=== PATIENT | male | born 1950 | race Caucasian/White ===

== ENCOUNTER → 2020-05-09 15:45 | Outpatient (CLI) | payer MEDICARE, SELFPAY ==
--- NOTE | ~2020-05-09 | MR_ITS ---
EXAMINATION: MR shoulder RT wo con DATE: 05/09/2020 16:18 INDICATION: Right rotator cuff tear. TECHNIQUE: Magnetic resonance imaging (MRI) of the right shoulder was performed without intravenous c ontrast. Sequences included axial PD-weighted FS FSE, coronal oblique PD-weighted FS FSE and T2-weigh ron FS FSE, and sagittal oblique T2-weighted FS FSE and T1-weighted FSE. COMPARISON: Right shoulder radiographs 05/02/2020 FINDINGS: Coracoacromial arch: The acromion undersurface is curved in morphology (type II). There is severe acromioclavicular joint osteoarthritis. There is moderate subacromial/subdeltoid bursitis. Rotator cuff: There is severe supraspinatus and infraspinatus tendinopathy. There is a full-thickness tear of anter ior supraspinatus tendon measuring 7 mm anterior to posterior by 10 mm proximal to distal. Teres dana r tendon is normal. There is an articular sided partial tear of subscapularis tendon. There is no asy mmetric fatty atrophy of the rotator cuff muscle bellies. Biceps tendon and glenoid labrum: Biceps tendon is in bicipital groove. There is a partial tear of biceps tendon. There is a tear of th e glenoid labrum from 10:00 to 2:00 (SLAP tear). Fluid: There is a moderate-sized glenohumeral joint effusion. Bones/cartilage: There is shallow partial-thickness cartilage loss of glenoid and humeral head. IMPRESSION: 1. Severe rotator cuff tendinopathy with full-thickness tear of anterior supraspinatus tendon and par tial thickness tear of subscapularis tendon. 2. Partial tear of intra-articular biceps tendon. 3. Mild glenohumeral joint chondrosis. SLAP tear. 4. Moderate subacromial/subdeltoid bursitis and moderate-sized glenohumeral joint effusion. 5. Severe acromioclavicular joint osteoarthritis. Reviewed, dictated and finalized at location [facility]. [employer] IMPRESSION: 1. Severe rotator cuff tendinopathy with full-thickness tear of anterior supras pinatus tendon and partial thickness tear of subscapularis tendon. 2. Partial tear of intra-articular biceps tendon. 3. Mild glenohumeral joint chondrosis. SLAP tear. 4. Moderate subacromial/subdeltoid bursitis and moderate-sized glenohumeral parish nt effusion. 5. Severe acromioclavicular joint osteoarthritis.
== END ==
PROVIDERS: PCP Family Medicine; Visit Provider Orthopaedic Surgery
DX: M75.121 Complete rotator cuff tear or rupture of right shoulder, not specified as traumatic (principal); M19.011 Primary osteoarthritis, right shoulder; S43.431A Superior glenoid labrum lesion of right shoulder, initial encounter; X58.XXXA Exposure to other specified factors, initial encounter; M75.51 Bursitis of right shoulder
CPT/HCPCS: 73221

== ENCOUNTER 2020-06-15 00:43 | Outpatient (CLI) | payer MEDICARE, SELFPAY ==
[2020-06-15 18:47] LABS: SARS-CoV-2 RNA PCR Negative
== END 2020-06-15 00:44 | disposition home or self-care (01) ==
LOC: ANHCOVIDDT 00:43
PROVIDERS: PCP Family Medicine; Visit Provider Orthopaedic Surgery
DX: Z01.812 Encounter for preprocedural laboratory examination (principal); Z20.822 Contact with and (suspected) exposure to COVID-19
CPT/HCPCS: C9803; U0003; U0005

== ENCOUNTER 2020-06-18 00:54 | Day surgery (SDC) | payer MEDICARE, SELFPAY ==
[2020-06-10 09:43] VITALS: BMI 25.8
--- NOTE | 2020-06-17 11:42 | WPDANESEPPF ---
Anes - Initial Pre Proc Eval Procedure: Operation Date: 06/18/20 10:30 Proposed Procedures p Arthroscopic Right Rotator Cuff Repair, Biceps Tenodesis, Subacromial Decompression - Zion Handy MD Date/Time: 06/17/20 11:42 Surgeon: Zion Handy MD Pre Op Diagnosis: Right Rotator Cuff Tear, Biceps Tendon Tear Patient Data Age: 69 Gender: M Height: 1.78 m Weight: 81.65 kg Allergies Allergy/AdvReac Type Severity Reaction Status Date / Time morphine Allergy Unknown Unknown Verified 06/18/20 08:24 Home Medications Medication Instructions Recorded Confirmed Type atorvastatin 40 mg tablet 40 mg PO DAILY 04/16/20 06/18/20 History metoprolol succinate 25 mg 12.5 mg PO QAM 04/16/20 06/18/20 History tablet,extended release 24 hr cholecalciferol (vitamin D3) 125 mcg PO DAILY 06/10/20 06/18/20 History glucos sul [id number] 1 cap PO DAILY 06/10/20 06/18/20 History [Glucosamine Chondroitin] ibuprofen 200 mg PO Q6H PRN 06/10/20 06/18/20 History aspirin 81 mg chewable tablet 81 mg PO DAILY 06/12/20 06/18/20 History Patient hx anesthesia problems: none Family hx anesthesia problems: none PMFSH Past Medical History Medical History (Updated 06/17/20 @ 11:44 by Jordan Li MD) CAD (coronary artery disease) Elbow fracture (~1989) History of heart attack (~08/2012) Hypercholesterolemia Surgical History Surgical History (Updated 06/17/20 @ 11:44 by Jordan Li MD) History of appendectomy History of back surgery (~1986) History of coronary artery stent placement x 2011 History of tonsillectomy Social History Social History Smoking status: Never smoker Alcohol intake: never Living arrangements: with family Spiritual care concerns: No Anes - Eval Final PreProcedure Day of Procedure 06/17/20 11:42 Patient weight: overweight Heart: regular rate and rhythm Lungs: clear to auscultation and normal air movement Airway: Mallampati scale class II Neurological: alert and oriented Last oral intake: >/= 8 hours ASA classification: III Emergent: no Anesthetic plan: proceed Anesthesia type and monitoring: general ETT Informed Consent: The patient's anesthetic plan and its attendant risks and benefits were discussed with the patient/family/POA. Questions were solicited and answers provided to the satisfaction of the patient/family/POA.
[2020-06-18] VITALS (8 sets, daily range): BP systolic 119–155; BP diastolic 70–95; PULSE 43–57; RESP 10–19; TEMP 36–36.1; O2SAT 93–99
--- NOTE | 2020-06-18 08:20 | ECG_ITS ---
Measurements Intervals [place] Rate: 53 P: 26 [place]: 197 QRS: 36 QRSD: 93 T: -29 QT: 431 QTc: 406 Interpretive Statements SINUS BRADYCARDIA INFERIOR INFARCT, AGE INDETERMINATE ABNORMAL ECG Electronically Signed On 06-18-2020 8:52:06 CABLE LAYER by Alvaro Bowen D.O.
[2020-06-18] MEDS: ACETAMINOPHEN 500 MG TABLET 1000 MG PO (08:38)
[2020-06-18] MEDS: LACTATED RINGERS 1,000 ML 30 ML IV CONT ×2 (08:56→13:04)
[2020-06-18] MEDS: KETOROLAC 15 MG/ML VIAL (*BKC) IV PUSH (08:56)
--- NOTE | 2020-06-18 09:54 | WPDANESPNB ---
Anes - Peripheral Nerve Block Date/Time: 06/18/20 09:54 I have discussed with the patient/family/POA the placement of a peripheral nerve block for post-operative pain management, including associated risks, benefits, complications, and side effects. Alternative methods of post-operative analgesia were detailed. Questions were solicited and answers provided to the satisfaction of the patient/family/POA. Time-Out: A pre-procedural Time-Out was completed immediately before starting the procedure and confirmed: Patient Identification, Site, Procedure, Patient Position and the Availability of Requisite Equipment. Clinical Indications: Acute post-operative pain management requested by the operative surgeon. Nerve Block Insertion Note Anes-nerve block: supraclavicular right Patient position: supine Skin prep: chlorhexidine Needle: 22 gauge, stimulating, insulated echogenic needle. Needle length: 80 mm Technique: ultrasound (in plane) Injectate: bupivacaine 0.5% with epi 5 mcg/ml (20cc) Observations: tolerated well Complications: none Procedure start time:: 1045 Procedure end time:: 1050
--- NOTE | 2020-06-18 10:31 | WPDHPUPDATE1 ---
History and Physical Update Update Date/Time: 06/18/20 10:31 History and Physical has been reviewed, including an updated exam of the patient. There are NO changes in the patient's condition. Risks, benefits, and alternatives have been discussed and questions answered. Patient agrees to proceed with procedure.
[2020-06-18] MEDS: ceFAZolin 2 GM/D5W 50 ML 2 GM/50 ML BAG IVPB (10:53)
--- NOTE | 2020-06-18 15:23 | P.OP_ITS ---
Procedure Note - Detailed Date of procedure: 06/18/20 Pre-op diagnosis: Right Rotator Cuff Tear, Biceps Tendon Tear Post-op diagnosis: same Procedure performed: 1. Arthroscopic rotator cuff repair. 2. Arthroscopic subacromial decompression. 3. Arthroscopic biceps tenodesis. Description of procedure: Large full-thickness rotator cuff tear. Mild retraction and delamination. Significant tearing and tendinosis of the intra- articular biceps tendon. Two tunnels were created at the footprint. Simple suture pattern was used. The delaminated tendon was incorporated in the more anterior supraspinatus portion. Biceps tenodesis was incorporated, as the tear was anterior. Two sutures from the anterior tunnel were passed through the biceps tendon and the cuff; one with a locking loop. The acromion had a significant downsloping spur. This was treated with acromioplasty. Glenohumeral joint was in good condition without significant cartilage wear. There was mild degeneration of the posterior inferior labrum. There was moderate capsulitis and inflammatory effusion. Anesthesia: [facility] Surgeon: Zion Handy MD Instructional Support Technician: Letty Schumacher PA-C Estimated blood loss (mL): 20 Complications: None Condition: stable Disposition: PACU Findings: Physician physician office assistant, Letty Schumacher PA-C, required for surgery; including patient positioning, draping, arthroscopic camera operation, maintaining instrument position, suture retrieval, wound closure, and dressing and sling placement. Operative detail: Preoperative antibiotics were given. An interscalene block was administered in the preoperative area. The patient was bought brought to the operating room. A general anesthetic was administered. The patient was carefully positioned in the beach chair position. The head and neck were carefully positioned. The non operative extremity was also carefully positioned. The shoulder was prepped and draped in the usual sterile fashion. Examination was performed. Standard po sterior and anterior arthroscopic portals were established. Inflow achieved with the arthroscopic pump using saline and epinephrine. The glenohumeral joint was carefully inspected. Mild fraying posteriorly did not require any specific treatment. Biceps had significant fraying was very flattened and degenerative. It was released from the superior labrum. Attention was turned to the subacromi al space. A complete bursectomy was performed. The rotator cuff and footprint were lightly debrided. A modest acromioplasty was performed. The tear configuration was carefully assessed. At this point, 2 tunnels were created at the rotator cuff. One anterior and 1 posterior. The ArthroTunneler technique was utilized. Three sutures were passed through each tunnel. All sutures were then passed through the cuff tissue. Two of the anterior sutures were also incorporated into the biceps for tenodesis. The sutures were tied arthroscopically. The arthroscopic instruments were removed. The wounds were closed with 3-0 Monocryl subcuticular suture and steri strips. There were no complications. A sling was applied and the patient brought to the recovery room.
== END 2020-06-18 15:10 | disposition home or self-care (01) ==
PROVIDERS: PCP Family Medicine; Visit Provider Orthopaedic Surgery
PROC: (CPT 29805; principal; 2020-06-18 10:30)
DX: S46.011A Strain of muscle(s) and tendon(s) of the rotator cuff of right shoulder, initial encounter (principal); S46.211A Strain of muscle, fascia and tendon of other parts of biceps, right arm, initial encounter; X50.0XXA Overexertion from strenuous movement or load, initial encounter; G89.18 Other acute postprocedural pain; I25.10 Atherosclerotic heart disease of native coronary artery without angina pectoris; E78.00 Pure hypercholesterolemia, unspecified; I25.2 Old myocardial infarction; Z95.5 Presence of coronary angioplasty implant and graft; Z79.82 Long term (current) use of aspirin
CPT/HCPCS: 29827; 29828; 29826; 64415; 93005; A9270; J0690; J1100; J1885; J2250; J2405; J2704; J2710; J3010; J7120

== ENCOUNTER 2020-11-18 09:48 | Outpatient (CLI) | payer MEDICARE, SELFPAY ==
[2020-11-18 11:14] LABS: Basophils Percent Auto 0.6 % (0.2-1.2); Eosinophils Absolute Auto 0.2 K/mm3 (0-0.3); Eosinophils Percent Auto 2.6 % (0-4.4); Hematocrit 47.6 % (42.0-52.0); Hemoglobin 15.6 g/dL (14.0-18.0); Immature Granulocyte Absolute 0.02 K/mm3 (0.00-0.031); Immature Granulocyte Percent A 0.3 % (0-0.5); Lymphocytes Absolute Auto 1.64 K/mm3 (0.9-3.2); Lymphocytes Percent Auto 23.3 % (18.3-44.2); Mean Corpuscular HGB Conc 32.8 g/dl (32-36); Mean Corpuscular Hemoglobin 30.1 pg (26-34); Mean Corpuscular Volume 91.7 fl (80-100); Mean Platelet Volume 11.1 fl (7.4-10.4); Monocytes Absolute Auto 0.8 K/mm3 (0.1-0.6); Monocytes Percent Auto 10.7 % (2.6-8.5); Neutrophils Absolute Auto 4.4 K/mm3 (1.3-6.7); Neutrophils Percent Auto 62.5 % (45.5-73.1); Platelet Count Result 224 k/mm3 (150-375); Red Blood Count 5.19 M/mm3 (4.6-6.20); Red Cell Distribution Width 13.9 % (11.5-14.5)
[2020-11-18 11:24] LABS: Potassium 4.2 mmol/L (3.4-5.0)
[2020-11-18 11:26] LABS: INR 1.1; Prothrombin Time 14.3 Seconds (11.1-14.7)
[2020-11-18 11:27] LABS: Partial Thromboplastin Time 28.3 SECONDS (22.3-36.8)
[2020-11-18 11:29] LABS: Alanine Aminotransferase 14 U/L (4-50); Albumin Level 4.4 g/dL (3.5-5.1); Alkaline Phosphatase 62 U/L (38-126); Anion Gap 7 mmol/L (8-16); Aspartate Amino Transferase 25 U/L (17-59); Bilirubin,Total 0.6 mg/dL (0.2-1.3); Blood Urea Nitrogen 16 mg/dL (9-20); Calcium 9.8 mg/dL (8.4-10.2); Carbon Dioxide 28 mmol/L (22-30); Chloride 105 mmol/L (98-107); Estimated Glomerular Filt Rate > 60; Sodium 140 mmol/L (137-145)
[2020-11-18 13:01] LABS: Glucose 97 mg/dL (75-110)
== END 2020-11-18 09:49 | disposition home or self-care (01) ==
PROVIDERS: PCP Family Medicine; Visit Provider Urology
DX: C61 Malignant neoplasm of prostate (principal); Z01.818 Encounter for other preprocedural examination
CPT/HCPCS: 36415; 80053; 85025; 85610; 85730; 86850; 86900; 86901; 87086

== ENCOUNTER → 2020-11-23 00:05 | Outpatient (CLI) | payer MEDICARE, SELFPAY ==
[2020-11-23 16:57] LABS: SARS-CoV-2 RNA PCR Negative
== END ==
PROVIDERS: PCP Family Medicine; Visit Provider Urology
DX: Z01.812 Encounter for preprocedural laboratory examination (principal); Z20.822 Contact with and (suspected) exposure to COVID-19
CPT/HCPCS: C9803; U0003; U0005

== ENCOUNTER 2020-11-26 01:59 | Day surgery (SDC) | payer MEDICARE, SELFPAY ==
[2020-11-18 10:18] VITALS: BP 148/76; PULSE 46; RESP 20; TEMP 36.9; O2SAT 99; BMI 28.0
[2020-11-26] VITALS (16 sets, daily range): BP systolic 106–157; BP diastolic 61–94; PULSE 49–84; RESP 12–20; TEMP 35.8–37.1; O2SAT 94–100; BMI 27.1
--- NOTE | 2020-11-26 06:28 | P.PNAN_ITS ---
Anes - Initial Pre Proc Eval Procedure: Operation Date: 11/26/20 07:30 Proposed Procedures p Robotic Assisted Nerve Sparing Prostatectomy With Possible Bilateral Lymph Node Dissection - Enrique Stiles MD Date/Time: 11/26/20 06:28 Surgeon: Enrique Stiles MD Pre Op Diagnosis: prostate CA Patient Data Age: 69 Gender: M Height: 1.75 m Weight: 86.2 kg Last Vital Signs Temp 36.9 C 11/18/20 10:18 Pulse 46 L 11/18/20 10:18 Resp 20 11/18/20 10:18 BP 148/76 H 11/18/20 10:18 Pulse Ox 99 11/18/20 10:18 Allergies Allergy/AdvReac Type Severity Reaction Status Date / Time morphine Allergy Unknown UNABLE TO Verified 11/26/20 06:23 URINATE Home Medications Medication Instructions Recorded Confirmed Type atorvastatin 40 mg tablet 20 mg PO HS 04/16/20 11/18/20 History metoprolol succinate 25 mg 12.5 mg PO QAM 04/16/20 11/18/20 History tablet,extended release 24 hr Glucosamine Chondroitin 1 cap PO QAM 06/10/20 11/18/20 History cholecalciferol (vitamin D3) 125 mcg PO QAM 06/10/20 11/18/20 History aspirin 81 mg chewable tablet 81 mg PO QAM 06/12/20 11/18/20 History calcium carbonate-vitamin D3 1 tablet PO QAM 11/18/20 11/18/20 History [Calcium + D] Patient hx anesthesia problems: none Family hx anesthesia problems: none PMFSH Past Medical History Medical History CAD (coronary artery disease) Elbow fracture (~1989) History of heart attack (~08/2012) Hypercholesterolemia Surgical History Surgical History History of appendectomy History of back surgery (~1986) History of coronary artery stent placement x 2011 History of repair of right rotator cuff (~06/18/20) Biceps Tenodesis and Subacromial Decompression History of tonsillectomy Social History Social History Smoking status: Never smoker Second hand tobacco smoke exposure: No Alcohol intake: never Substance use: never Substance use type: does not use Living arrangements: with family Spiritual care concerns: No Anes - Eval Final PreProcedure Day of Procedure 11/26/20 06:28 Patient weight: overweight Heart: regular rate and rhythm Lungs: clear to auscultation Airway: Mallampati scale class II Neurological: alert and oriented Last oral intake: >/= 8 hours ASA classification: III Emergent: no Anesthetic plan: proceed Anesthesia type and monitoring: general ETT and standard monitoring Informed Consent: The patient's anesthetic plan and its attendant risks and bene fits were discussed with the patient/family/POA. Questions were solicited and answers provided to the satisfaction of the patient/family/POA.
[2020-11-26] MEDS: LACTATED RINGERS 1,000 ML 30 ML IV CONT ×2 (06:45→12:11)
--- NOTE | 2020-11-26 06:53 | WPDHPUPDATE1 ---
History and Physical Update Update Date/Time: 11/26/20 06:53 History and Physical has been reviewed, including an updated exam of the patient. There are NO changes in the patient's condition. Risks, benefits, and alternatives have been discussed and questions answered. Patient agrees to proceed with procedure. Proceed with robotic assist nerve sparing prostatectomy with possible plnd.
[2020-11-26] MEDS: ceFAZolin 2 GM/D5W 50 ML 2 GM/50 ML BAG IVPB (07:28)
[2020-11-26] MEDS: BUPIVACAINE HCL 0.5% PF 30 ML VIAL INFILTRATE (10:22)
[2020-11-26] MEDS: ceFAZolin SODIUM 1 GM VIAL IV PUSH (11:24)
--- NOTE | 2020-11-26 12:05 | W.PM.PROC2 ---
Procedure Note - Detailed Date of Procedure 11/26/20 Pre-op Diagnosis prostate CA Post-op Diagnosis same Procedure Performed Robotic assisted nerve-sparing prostatectomy with left pelvic lymph node dissection Surgeon Enrique Stiles MD Anesthesia general Description of Procedure patient was taken the operative suite correctly identified. Once anesthesia was obtained was placed in lying dorsal lithotomy position and prepped and draped usual sterile fashion. Supraumbilical incision was then made carried down to the rectus fascia. Stay Veress needle was inserted the abdomen was insufflated to 15 mmHg pressure. An 18 Persian Hull had been placed with 20 cc in the balloon. We then placed our working ports then proper locations. Patient was placed in steep Trendelenburg and the robot was docked. With placement of the camera was noted that the visualization was extremely poor. We had about 35-45 minutes of time trying to resolve the issue and finally were able to reset the de Marcellus to rectify the problem. We then started by taking down adhesions from the left colon. Posterior approach was then performed. Seminal vesicles were dissected out in their entirety. The vas were transected. Plane between the prostate and rectum was developed. Bladder was then taken down in a standard fashion. Space of Retzius was developed. Puboprostatic were taken down. Dorsal venous complex was isolated and ligated using 0 Vicryl. This was secured to the pubic bone. Bladder neck was then taken down. Patient had a fairly large median lobe it almost appeared bilobed. We were able to Excise it with the specimen in its entirety. Posterior bladder neck was then transected. The prior dissected seminal vesicles and vas were isolated. Pedicles were clipped. Bilateral nerve sparing was then performed. Dorsal venous complex was transected. The urethra was also transected. He had a nice urethral stump. Left pelvic lymph node dissection was then performed with the boundaries being the external iliac vein, obturator nerve, Toney's ligament, and bifurcation of the vessels. Clips were placed approximately. Specimens were placed in Endo-Catch bag. We then did a Luis stitch for the posterior shelf. Bladder was anastomosed to the urethral stump using V lock suture in a running fashion. There was a good approximation mucosa to mucosa. Sixteen Persian Hull with 10 cc were placed in the balloon. All lap count needle count sponge counts were correct. The specimen was then brought out through the midline incision after we undocked the robot. The lock suture was then placed to reapproximate the rectus fascia. A AMBER drain had been placed in the 3rd port site. Port sites were closed using a subcuticular stitch. We anesthetized this port sites using lidocaine without epi. All lap count needle count sponge counts were correct. Patient is taken recovery stable condition. Estimated Blood Loss 100 Drains Yes Packing No Pathology yes Complications No immediate complications Condition stable Disposition PACU
[2020-11-26] MEDS: fentaNYL CITRATE INJ (*CRX) 100 MCG/2 ML VIAL 25 MCG IV PUSH ×2 (13:37→13:41)
--- NOTE | 2020-11-26 13:44 | SUR.PHASEI ---
1232 - dr. balderrama informed on low urine output. ordered to irrigate trejo. pt tolerated well. no clots noted. trejo drained with light pink urine.
--- NOTE | 2020-11-26 14:22 | ADMGEN ---
This patient, Dontae Perez, was admitted to Medical Room 259-01. Patient/family oriented to hospital policies and general routines including ID bracelet, bed and alarms, visiting hours, pain management, procedures, bathroom and other care routines, personal items, smoking policy, room service/diet, and visiting hours. Information on how to activate the Rapid Response Team has been discussed. Patient/Family are encouraged to report perceived risks to care and to ask questions if they do not understand what they are told or what they should do.
[2020-11-26] MEDS: LACTATED RINGERS 1,000 ML 125 ML IV CONT ×2 (14:28→22:32)
[2020-11-26] MEDS: KETOROLAC 15 MG/ML VIAL (*BKC) IV PUSH (14:29)
[2020-11-26] MEDS: HYDROcodone/acetaminophen (*CRX) 5-325 MG TABLET 1 TAB PO (17:55)
[2020-11-26] MEDS: ONDANSETRON INJ 4 MG/2 ML VIAL IV PUSH (19:41)
[2020-11-26] MEDS: ATORVASTATIN 20 MG TABLET PO (20:51)
[2020-11-27] MEDS: HYDROcodone/acetaminophen (*CRX) 5-325 MG TABLET 1 TAB PO ×2 (03:13→15:12)
[2020-11-27 03:53] VITALS: BP 114/70; PULSE 58; RESP 20; TEMP 36.7; O2SAT 98
[2020-11-27] MEDS: HYOSCYAMINE SULFATE 0.125 MG TABLET SUBLINGUAL (05:22)
[2020-11-27 05:47] LABS: Hematocrit 37.4 % (42.0-52.0); Hemoglobin 12.4 g/dL (14.0-18.0)
[2020-11-27 05:52] LABS: Anion Gap 4 mmol/L (8-16); Blood Urea Nitrogen 12 mg/dL (9-20); Calcium 8.4 mg/dL (8.4-10.2); Carbon Dioxide 26 mmol/L (22-30); Chloride 103 mmol/L (98-107); Estimated CRCL calculation 77 ml/min; Estimated Glomerular Filt Rate > 60; Glucose 110 mg/dL (75-110); Potassium 3.9 mmol/L (3.4-5.0); Sodium 133 mmol/L (137-145)
[2020-11-27] MEDS: LACTATED RINGERS 1,000 ML 125 ML IV CONT (06:33)
--- NOTE | 2020-11-27 07:52 | WPDUROPN2 ---
Progress Note: A&P Assessment and Plan (1) Adenocarcinoma of prostate: Code(s): C61 - Malignant neoplasm of prostate Status: Acute Additional Plan Doing well on postoperative day 1. Increase ambulation. Will monitor AMBER output this morning. Re-evaluate this afternoon. If doing well may be discharged home with Hull catheter. Subjective Subjective Date/Time Seen: 11/27/20 07:52 Post Op day: 1 (Robotic assisted nerve-sparing prostatectomy with left pelvic lymph node dissection) Principal diagnosis: adenocarcinoma of the prostate Interval history: Dontae is doing well this morning. He had quite a bit of nausea overnight. Urine is clear at this point time. Review of Systems Review of Systems: All systems reviewed & are unremarkable except as noted in HPI and below Exam Const: General: cooperative and comfortable Resp: Effort & Inspection: normal respiratory effort Cardio: Rate: regular rate Rhythm: regular rhythm GI: Inspection: normal to inspection GI Palp: Yes Soft to palpation Urinary Catheter: Urinary Catheter: patent and draining and urine clear Objective Data Vital Signs Vital Signs: Vital Signs - 24 hr 11/26/20 12:11 11/26/20 12:25 11/26/20 12:40 Temperature 36.6 C Pulse Rate 76 63 61 Respiratory Rate 16 18 18 Blood Pressure 150/90 H 157/94 H 153/82 H Pulse Oximetry 100 100 95 11/26/20 12:55 11/26/20 13:10 11/26/20 13:25 Temperature Pulse Rate 68 60 66 Respiratory Rate 12 14 18 Blood Pressure 149/79 H 151/85 H 145/92 H Pulse Oximetry 96 97 95 11/26/20 13:40 11/26/20 13:55 11/26/20 14:05 Temperature Pulse Rate 68 69 73 Respiratory Rate 14 18 16 Blood Pressure 147/91 H 131/82 131/82 Pulse Oximetry 94 95 94 11/26/20 14:08 11/26/20 14:23 11/26/20 14:53 Temperature 36.1 C L 35.8 C L 36.1 C L Pulse Rate 75 73 71 Respiratory Rate 16 16 16 Blood Pressure 140/79 148/84 H 140/84 Pulse Oximetry 96 97 97 11/26/20 15:53 11/26/20 19:53 11/26/20 23:53 Temperature 36.8 C 36.8 C 37.1 C Pulse Rate 70 84 59 L Respiratory Rate 16 18 20 Blood Pressure 132/74 133/79 106/61 Pulse Oximetry 94 96 98 11/27/20 03:53 Temperature 36.7 C Pulse Rate 58 L Respiratory Rate 20 Blood Pressure 114/70 Pulse Oximetry 98 Intake/Output Intake/Output: Intake & Output 11/24/20 11/25/20 11/26/20 11/27/20 23:59 23:59 23:59 23:59 Intake Total 2530 1000 Output Total 1200 1125 Balance 1330 -125 Meds/Results Medications: Active Medications Generic Name Dose Route Start Last Admin Trade Name Freq PRN Reason Stop Dose Admin Acetaminophen 650 mg 11/26/20 17:40 Acetaminophen 325 Mg Tablet PO Q4H PRN Mild Pain (1-3) or Fever Hydrocodone Bitart/Acetaminophen 1 tab 11/26/20 17:41 11/27/20 03:13 Hydrocodone/Acetaminophen (*Crx) 5-325 Mg Tablet PO 1 tab Q4H PRN Administration Pain Rated 4-6 Atorvastatin Calcium 20 mg 11/26/20 21:00 11/26/20 20:51 Atorvastatin 20 Mg Tablet PO 20 mg HS FAUSTO Administration Hyoscyamine 0.125 mg 11/26/20 14:08 11/27/20 05:22 Hyoscyamine Sulfate 0.125 Mg Tablet SUBLINGUAL 0.125 mg Q4H PRN Administration Bladder Spasm Lactated Ringer's 1,000 mls @ 125 mls/hr 11/26/20 14:08 11/27/20 06:33 Lr - Lactated Ringers Iv IV CONT 125 mls/hr .Q8H FAUSTO Administration Ketorolac Tromethamine 15 mg 11/26/20 14:08 11/26/20 14:29 Ketorolac 15 Mg/Ml Vial (*Bkc) IV PUSH 11/27/20 14:09 15 mg Q6H PRN Administration Pain Rated 4-6 Levofloxacin 500 mg 11/27/20 09:00 Levofloxacin 500 Mg Tablet PO DAILY FAUSTO Metoprolol Succinate 12.5 mg 11/27/20 09:00 Metoprolol Succinate Ext Rel 12.5 Mg Tabcr PO QAM FAUSTO Naloxone HCl 0.1 mg 11/26/20 14:08 Naloxone Hcl 0.4 Mg/Ml Vial IV PUSH Q2M PRN Opiate Reversal Ondansetron HCl 4 mg 11/26/20 19:11 11/26/20 19:41 Ondansetron Inj 4 Mg/2 Ml Vial IV PUSH 4 mg Q4H PRN Administration Nausea An
[2020-11-27 08:14] VITALS: PULSE 64
[2020-11-27] MEDS: levoFLOXacin 500 MG TABLET PO (08:14)
[2020-11-27] MEDS: METOPROLOL SUCCINATE EXT REL 12.5 MG TABCR PO (08:14)
[2020-11-27] MEDS: ACETAMINOPHEN 325 MG TABLET 650 MG PO (08:46)
[2020-11-27 11:53] VITALS: BP 128/69; PULSE 60; RESP 20; TEMP 36.7; O2SAT 96
--- NOTE | 2020-11-27 16:50 | PC.NURSE ---
Antibiotic script not transmitted electronically over computer to patients pharmacy. Spoke with pharmacist who stated she did not receive prescription, this RN called script in over the phone.
== END 2020-11-27 15:20 | disposition home or self-care (01) ==
LOC: ANHSURGERY 06:03 → ANH2MED 14:13
PROVIDERS: PCP Family Medicine; Visit Provider Urology
PROC: 0VT04ZZ Resection of Prostate, Percutaneous Endoscopic Approach (ICD-10-PCS; CPT 55867; principal; 2020-11-26 07:30)
DX: C61 Malignant neoplasm of prostate (principal); I70.90 Unspecified atherosclerosis; I25.10 Atherosclerotic heart disease of native coronary artery without angina pectoris; I25.2 Old myocardial infarction; E78.00 Pure hypercholesterolemia, unspecified; Z79.82 Long term (current) use of aspirin; Z95.5 Presence of coronary angioplasty implant and graft
CPT/HCPCS: 55866; 38571; S2900; 36415; 80048; 85014; 85018; 88304; 88305; 88307; 88309; A9270; J0330; J0690; J1100; J1170; J1885; J2250; J2370; J2405; J2704; J2710; J2765; J3010; J7030; J7120

== ENCOUNTER 2020-12-04 11:15 | Outpatient (CLI) | payer MEDICARE, SELFPAY ==
--- NOTE | ~2020-12-04 | XR_ITS ---
XR cystogram DATE: 12/04/2020 12:02 INDICATION: Prostate cancer surgery TECHNIQUE: [employer] KUB. Fluoroscopy, AP and bilateral oblique views during filling of the urinary bladd er with radiopaque contrast material through the existing Hull catheter with contrast material, and postevacuation AP view COMPARISON: None FINDINGS: There is a transitional lumbosacral vertebra with sacralization on the left and lumbarizati on on the right. There is no evidence of abnormal filling defect of the urinary bladder, vesicoureteral reflux or extr avasation of contrast material from the bladder lumen. IMPRESSION: No significant abnormality Reviewed, dictated and finalized at [facility]. Reviewed, dictated and finalized at location [facility]. IMPRESSION: No significant abnormality
== END 2020-12-04 11:16 | disposition home or self-care (01) ==
LOC: ANHIMG 11:18
PROVIDERS: PCP Family Medicine; Visit Provider Urology
DX: C61 Malignant neoplasm of prostate (principal)
CPT/HCPCS: 51600; 74430; Q9967

== ENCOUNTER 2023-05-19 10:11 | Outpatient (CLI) | payer MEDICARE, SELFPAY ==
--- NOTE | 2023-05-19 11:00 | NEURO_ITS ---
Impression: # Complains of numbness of hands. # Bilateral Carpal Tunnel Syndrome, left more than right. # Needle/EMG exam mildly neurogenic. Nerve Conduction Studies Anti Sensory Summary Table Stim Site NR Peak (ms) P-T Amp (?V) Site1 Site2 Delta-P (ms) Dist (cm) Kennedy (m/s) Left Median Anti Sensory (2-3nd Digit) Wrist 4.6 23.5 Wrist 2-3nd Digit 4.6 14.0 30 Wrist 4.8 25.6 Wrist 2-3nd Digit 4.6 14.0 30 Right Median Anti Sensory (2-3nd Digit) Wrist 3.9 23.0 Wrist 2-3nd Digit 3.9 14.0 36 Wrist 3.6 8.4 Wrist 2-3nd Digit 3.9 14.0 36 Left Radial Anti Sensory (Base 1st Digit) Wrist 2.6 23.2 Wrist Base 1st Digit 2.6 0.0 Right Radial Anti Sensory (Base 1st Digit) Wrist 2.5 18.4 Wrist Base 1st Digit 2.5 0.0 Left Ulnar Anti Sensory (5th Digit) Wrist 2.7 17.5 Wrist 5th Digit 2.7 14.0 52 Right Ulnar Anti Sensory (5th Digit) Wrist 2.7 24.2 Wrist 5th Digit 2.7 14.0 52 Motor Summary Table Stim Site NR Onset (ms) O-P Amp (mV) Site1 Site2 Delta-0 (ms) Dist (cm) Kennedy (m/s) Left Median Motor (Abd Poll Brev) Wrist 4.7 2.3 Elbow Wrist 5.1 31.0 61 Elbow 9.8 3.4 Right Median Motor (Abd Poll Brev) Wrist 3.6 3.5 Elbow Wrist 5.4 30.0 56 Elbow 9.0 3.3 Left Ulnar Motor (Abd Dig Minimi) Wrist 2.6 6.2 A Elbow Wrist 5.5 32.0 58 A Elbow 8.1 5.7 Right Ulnar Motor (Abd Dig Minimi) Wrist 2.5 6.7 A Elbow Wrist 5.5 32.0 58 A Elbow 8.0 5.7 F Wave Studies NR F-Lat (ms) L-R F-Lat (ms) Left Median (Mrkrs) (Abd Poll Brev) 30.79 0.50 Right Median (Mrkrs) (Abd Poll Brev) 30.29 0.50 Left Ulnar (Mrkrs) (Abd Dig Min) 29.79 0.70 Right Ulnar (Mrkrs) (Abd Dig Min) 29.09 0.70 EMG Side Muscle Nerve Root Ins Act Fibs Amp Dur Recrt Comment Right 1stDorInt Ulnar C8-T1 Nml Nml Nml Nml Nml Right Ext Indicis Radial (Post Int) C7-8 Nml Nml Nml Nml Nml Right Ext Digitorum Radial (Post Int) C7-8 Nml Nml Nml Nml Nml Right BrachioRad Radial C5-6 Nml Nml Nml Nml Nml Right PronatorTeres Median C6-7 Nml Nml Nml Nml Nml Right Abd Poll Brev Median C8-T1 Nml Nml Nml >12ms Reduced Left 1stDorInt Ulnar C8-T1 Nml Nml Nml Nml Nml Left Ext Indicis Radial (Post Int) C7-8 Nml Nml Nml Nml Nml Left Ext Digitorum Radial (Post Int) C7-8 Nml Nml Nml Nml Nml Left BrachioRad Radial C5-6 Nml Nml Nml Nml Nml Left PronatorTeres Median C6-7 Nml Nml Nml Nml Nml Left Abd Poll Brev Median C8-T1 Nml Nml Nml >12ms Reduced Right ABD Dig Min Ulnar C8-T1 Nml Nml Nml Nml Nml Left ABD Dig Min Ulnar C8-T1 Nml Nml Nml Nml Nml MTDD
== END 2023-05-19 10:12 | disposition home or self-care (01) ==
LOC: ANHNEURO 10:13
PROVIDERS: PCP Family Medicine; Visit Provider Nurse Practitioner Family
DX: G56.03 Carpal tunnel syndrome, bilateral upper limbs (principal)
CPT/HCPCS: 95886; 95911

== ENCOUNTER 2023-06-09 14:08 | Outpatient (CLI) | payer MEDICARE, SELFPAY ==
--- NOTE | ~2023-06-09 | XR_ITS ---
EXAM: XR hand RT min 3V, XR hand LT min 3V DATE: 06/09/2023 14:28 HISTORY: PAIN IN HANDS, SOMETIMES RADIATES UP ARM . COMPARISON: None available. FINDINGS: Normal mineralization. No fracture or dislocation. No lytic or blastic lesion. Mild scatte red arthritic changes, typical of osteoarthritis. Old left ulnar styloid fracture.. No erosion or per iosteal change. Soft tissues within normal limits. IMPRESSION: Mild polyarticular osteoarthritis of the hands. Reviewed, dictated and finalized at location K. R PATTERN FOLDER IMPRESSION: Mild polyarticular osteoarthritis of the hands.
== END 2023-06-09 14:09 | disposition home or self-care (01) ==
LOC: ANHIMG 14:12
PROVIDERS: PCP Family Medicine; Visit Provider Orthopaedic Surgery
DX: M19.041 Primary osteoarthritis, right hand (principal); M19.042 Primary osteoarthritis, left hand
CPT/HCPCS: 73130